=== PATIENT | female | born 1975 | race Caucasian/White ===

== ENCOUNTER 2016-11-16 01:13 | Inpatient (IN) | payer OTHER ==
[2016-11-16] MEDS ORDERED: OLIVE OIL 118 ML BTL MISC PRN (01:42)
[2016-11-16] MEDS ORDERED: OXYTOCIN/RINGERS LACTATE 1,000 ML IV PRN (01:42)
[2016-11-16] MEDS ORDERED: EPSOM SALT 454 GM TP PRN (01:42)
[2016-11-16] MEDS ORDERED: LR 1,000 ML IV PRN (01:42)
[2016-11-16] MEDS ORDERED: AMPICILLIN SODIUM 2 GM in NS 100 ML IV ONE (01:42)
[2016-11-16] MEDS ORDERED: TERBUTALINE SULFATE 1 MG/ML VIAL IV PRN (01:42)
[2016-11-16] MEDS ORDERED: OLIVE OIL 118 ML BTL ONE (01:53)
[2016-11-16] MEDS ORDERED: TERBUTALINE SULFATE 1 MG/ML VIAL ONE (01:53)
[2016-11-16] MEDS ORDERED: AMMONIA AROMATIC 1 EACH AMP IH ONE (01:53)
[2016-11-16] MEDS ORDERED: LIDOCAINE 1% 300 MG/30 ML SDV ONE (01:53)
[2016-11-16] MEDS ORDERED: OXYTOCIN 10 UNIT/ML VIAL ONE (01:54)
[2016-11-16] MEDS ORDERED: MISOPROSTOL 200 MCG TAB ONE (01:54)
[2016-11-16] MEDS ORDERED: fentaNYL 2MCG/ML/BUP 0.1% RTU 100 ML BAG EP ONE (02:22)
[2016-11-16] MEDS ORDERED: PHENYLEPHRINE HCL 100 MCG/ML SYR ONE (02:23)
[2016-11-16 02:24] LABS: % IMMATURE GRANULYOCYTES 0.5 % (0.0-1.1); ABSOLUTE IMMATURE GRANULOCYTES 0.05 10^3/uL (0.00-0.10); ADD DIFF? NO; ADD MORPH? NO; ADD SCAN? NO; ATYPICAL LYMPHOCYTE FLAG 20 (0-99); FRAGMENT RBC FLAG 0 (0-99); HEMATOCRIT 38.4 % (38.0-47.0); HEMOGLOBIN 13.5 g/dL (12.6-16.3); LEFT SHIFT FLG 0 (0-99); LIPEMIA HEMOLYSIS FLAG 90 (0-99); MEAN CELL HEMOGLOBIN CONCENTR. 35.2 g/dL (32.4-36.7); MEAN CELL VOLUME 102.4 fL (81.5-99.8); MEAN PLATELET VOLUME 13.5 fL (8.7-11.7); PLATELET CLUMPS FLAG 10 (0-99); PLATELET COUNT 130 10^3/uL (150-400); RED BLOOD CELL COUNT 3.75 10^6/uL (4.18-5.33); RED CELL DISTRIBUTION WIDTH 12.6 % (11.5-15.2)
[2016-11-16] MEDS ORDERED: PHENYLEPHRINE HCL 100 MCG/ML SYR IVP PRN (02:51)
--- NOTE | 2016-11-16 02:51 | PREANESOB ---
Obstetric Pre-Anesthesia Info - General Info Proposed Procedure: SARA : 2 Para: 1 - Info Status: Full Term Monitors: External FHR Pattern: Reassuring - Labor Status PIH: No Magnesium Sulfate in Use: No Indications for Labor Analgesia: Pain Control Labor Epidural: Proposed Anesthesia ROS: Graves disease. No current RX. Taking only PNV and Zoloft. Allergies/Adverse Reactions: Allergy/AdvReac Type Severity Reaction Status Date / Time No Known Allergies Allergy Unverified 05/02/09 20:12 Home Medications: Medication Instructions Recorded 1 tab PO DAILY 11/16/16 Zoloft 50mg (*) 1 tab PO DAILY 11/16/16 Visit Medications: Generic Name Dose Route Start Last Admin Trade Name Freq PRN Reason Stop Dose Admin Ampicillin Sodium 1 gm/ Sodium 100 mls @ 200 mls/hr 11/16/16 05:43 Chloride IV 12/16/16 05:42 Q4H VANESA Protocol Lactated Ringer's 1,000 mls @ 0 mls/hr 11/16/16 01:42 11/16/16 01:30 Lr IV 05/15/17 01:41 1,000 mls PRN PRN Administration SEE PROTOCOL CONDITIONS Protocol Per Protocol Oxytocin/Lactated Ringer's 1,000 mls @ 150 mls/hr 11/16/16 01:42 Pitocin 20 Units/Lr (Premix) IV PRN PRN Post- bleeding Ibuprofen 600 mg 11/16/16 01:42 Motrin PO 05/15/17 01:41 Q6HRS PRN post , inflammation Magnesium Sulfate 454 gm 11/16/16 01:42 Epsom Salt TP 05/15/17 01:41 PRN PRN perineal discomfort Satartia Oil 118 ml 11/16/16 01:42 Sweet Oil MISC 05/15/17 01:41 ONCE PRN preneal massage Terbutaline Sulfate 0.25 mg 11/16/16 01:42 Brethine IV 05/15/17 01:41 ONCE PRN Tachysystole Discontinued Medications Generic Name Dose Route Start Last Admin Trade Name Freq PRN Reason Stop Dose Admin Ammonia (Aromatic Spirit) Confirm 11/16/16 01:53 Ammonia Aromatic Administered 11/16/16 01:54 Dose 1 each IH .STK-MED ONE Ephedrine Sulfate Confirm 11/16/16 01:53 Ephedrine Sulfate Administered 11/16/16 01:54 Dose 50 mg .ROUTE .STK-MED ONE Fentanyl/Bupivacaine HCl Confirm 11/16/16 02:22 Fentanyl/Bupivacaine/Ns 2 Mcg/Ml 0.1% (Premix Administered 11/16/16 02:23 Dose 100 ml EP .STK-MED ONE Ampicillin Sodium 2 gm/ Sodium 110 mls @ 220 mls/hr 11/16/16 01:42 11/16/16 01:57 Chloride IV 11/16/16 02:11 110 mls ONCE ONE Administration Protocol Lidocaine HCl Confirm 11/16/16 01:53 Lidocaine Hcl 1% Administered 11/16/16 01:54 Dose 300 mg .ROUTE .STK-MED ONE Misoprostol Confirm 11/16/16 01:54 Cytotec Administered 11/16/16 01:55 Dose 800 mcg .ROUTE .STK-MED ONE Satartia Oil Confirm 11/16/16 01:53 Sweet Oil Administered 11/16/16 01:54 Dose 118 ml .ROUTE .STK-MED ONE Oxytocin Confirm 11/16/16 01:54 Pitocin Administered 11/16/16 01:55 Dose 40 unit .ROUTE .STK-MED ONE Phenylephrine HCl Confirm 11/16/16 02:23 Neosynephrine Administered 11/16/16 02:24 Dose 1,000 mcg .ROUTE .STK-MED ONE Terbutaline Sulfate Confirm 11/16/16 01:53 Brethine Administered 11/16/16 01:54 Dose 1 mg .ROUTE .STK-MED ONE - Focused Exam Height/Weight (Nursing): Height 170.18 cm Weight 75.296 kg ASA Status: II Labs: 11/16/16 01:30 - Plan Consent Signed and on Chart: Yes Patient/Guardian Understands and Agrees to Plan: Yes
[2016-11-16] MEDS ORDERED: fentaNYL 2MCG/ML/BUP 0.1% RTU 100 ML EP SCH (03:00)
[2016-11-16] MEDS ORDERED: LR 500 ML IV SCH (03:00)
--- NOTE | 2016-11-16 03:00 | POSTANESTH ---
Post Anesthetic Evaluation Cardiovascular Status: Normal, Stable, Similar to Pre-Op Cond Respiratory Status: Normal, Stable, Similar to Pre-op Cond. Level of Consciousness/Mental Status: Can Participate in Eval, Alert and Oriented Pain Control: Adequate, Prn Tx Ordered Nausea/Vomiting Control: Adequate, Prn Tx Ordered Complications Possibly Related to Anesthesia: None Noted (Excellent analgesia.)
--- NOTE | 2016-11-16 03:52 | OBPROG ---
OBG Labor Progress Note Assessment/Plan: Assessment:cat 2 fhr pain well managed by epidural exam /- cephalic contrctions q 3-4 clear fluid occasional prolonged variables Plan:expectant management of labor 11/16/16 03:50 Subjective: Feeling better after the epidural. Denies pain Objective: 11/16/16 01:30 Patient ABO/Rh B POSITIVE 11/16/16 01:30 - SVE Dilation (cm): 7 Effacement (%): 90 Station: -1 - Physical Exam General Appearance: WD/WN, alert, no apparent distress Neck: non-tender, full range of motion Respiratory: chest non-tender, lungs clear, normal breath sounds Cardiac/Chest: regular rate, rhythm Abdomen: normal bowel sounds Extremities: normal range of motion, Aishwarya's sign (negative bilaterally) DTR- Lower Extremities: Knee (R): 1+, Knee (L): 1+ (no clonus) Skin: normal color, warm/dry Neuro/Psych: no motor/sensory deficits, alert, normal mood/affect, oriented x 3 Oxytocin Orders Assessment - Pre-Induction/Augmentation Assessment Gestational Age: 38 week(s) and 4 day(s) ICD10 Worksheet Patient Problems: Problems Problem Status Onset Asthma Active Subclinical hyperthyroidism Active Vaginal delivery Active
--- NOTE | 2016-11-16 05:10 | GHP ---
[f rep st] HISTORY AND PHYSICAL DATE OF ADMISSION: 11/16/2016 Lupe is a 41-year-old, 2, para 1, with an EDC of 11/26/2016, which gives her a gestational age of 38 and 4/7 weeks. States bag of water had broken at 0040 on 11/16/2016. States labor began at 4 p.m. on 11/15/2016. The patient has been receiving routine care with [facility] since 04/29/2016 at 9 weeks and 1 day. She states feeling positive movement. PAST MEDICAL HISTORY: The patient has a history of depression. No prescriptions since 2001. 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 History of thyroid dysfunction, Graves disease. PAST SURGICAL HISTORY: [place] teeth extraction. Previous Dand C for retained placenta fragments. History of histeroscopys HISTORY OF : Clomid was given with her first . Manual extraction of the placenta. D and C by 4 weeks for retained placenta. : Velamentous insertion of the cord. AMA GYNECOLOGICAL HISTORY: History of infertility, positive HPV. Negative colpo in 2006. Long history of amenorrhea. Other surgical history, past D and C after 1st as well as hysteroscopies, past yeast infections in high school. LABS: Patient is B positive, antibody negative. RPR is nonreactive. Rubella is immune. Hepatitis is negative. HIV is negative. Parvovirus immune. TSH on 05/04/2016 was 0.109. Early ultrasound at 9 and 1/7 weeks through [facility]. AFP was negative. 1 hour GTT was negative. GBS is positive. PHYSICAL ASSESSMENT: The patient is awake, alert, oriented x3. LUNGS: Clear bilaterally. Bowel sounds are positive in all 4 quadrants. DTRs 1+ bilaterally. Homans sign is negative bilaterally. On exam palpation of the uterus, contractions are every 2-3 minutes with relaxation in between. PLAN OF CARE: 1. GBS positive. Antibiotics ampicillin in particular. 2. Epidural for pain relief at patient request. 3. Expectant management of labor. /[id number]/MODL MTDD
[2016-11-16] MEDS ORDERED: SIMETHICONE 80 MG TAB CHEW PO PRN (05:21)
[2016-11-16] MEDS ORDERED: HYDROCODONE/APAP 5/325 TAB PO PRN (05:21)
[2016-11-16] MEDS ORDERED: ACETAMINOPHEN 325 MG TAB PO PRN (05:21)
[2016-11-16] MEDS ORDERED: HYDROCORTISONE 0.5% CREAM TP PRN (05:21)
--- NOTE | 2016-11-16 05:21 | OBDEL ---
Info Type: Vaginal GBS+: Yes Antibiotic Used for + GBS: Ampicillin Number of Antibiotic Doses Given: 1 Indications for Delivery: Spontaneous Labor, SROM (AMA) Vaginal Delivery - Labor and Delivery Onset of Contractions Date: 11/15/16 Onset of Contractions Time: 16:00 Rupture of Membranes Date: 11/16/16 Rupture of Membranes Time: 00:40 Rupture of Membranes Type: Spontaneous Amniotic Fluid Color: Clear Dilation Complete Date: 11/16/16 Dilation Complete Time: 04:40 Placenta Delivery Date: 11/16/16 Placenta Delivery Time: 05:05 Total Hours of Labor: 13 Vaginal Sponge Count Correct: Yes Vaginal Needle Count Correct: Yes Vaginal Sweep Performed: No EBL: 350 Delivery Events: None Data Queen Delivery Date: 11/16/16 Delivery Time: 04:54 CARLOS: 11/26/16 Gestational Age: 38 week(s) and 4 day(s) Sex of : Male Score (1 Min): 8 Score (5 Min): 9 ICD10 Worksheet Patient Problems: Problems Problem Status Onset Asthma Active Subclinical hyperthyroidism Active Vaginal delivery Active
[2016-11-16] MEDS ORDERED: AMPICILLIN SODIUM 1 GM in NS 100 ML IV SCH (05:43)
[2016-11-16] MEDS: IBUPROFEN 600 MG TAB PO PRN ×3 (07:00→20:46)
[2016-11-16 08:58] VITALS: RESP 16
--- NOTE | 2016-11-16 12:16 | OBPP ---
Progress Note Assessment/Plan: Assessment: s/p PPD # 1 - pt is stable Plan: Continue routine pp care Encourage ambulation Plan for d/c home in am 11/1711/16/16 12:14 Subjective: Pt seen and examined. Doing well, with no complaints. Some cramping while nursing. Relief with Motrin. Moderate lochia. Voiding without difficulty, passing flatus. BF is going well so far. Objective: 11/16/16 01:30 Patient ABO/Rh B POSITIVE 11/16/16 01:30 Temp Pulse Resp BP Pulse Ox 36.7 C 66 16 111/68 96 11/16/16 11:19 11/16/16 11:19 11/16/16 11:19 11/16/16 11:19 11/16/16 08:54 Uterine Position/Fundal Height: Umbilicus -2 Uterine Tone: Firm Physical Exam - Physical Exam General Appearance: WD/WN, alert, no apparent distress Respiratory: lungs clear, normal breath sounds Cardiac/Chest: regular rate, rhythm Abdomen: normal bowel sounds, non-tender, soft, flatus (+) Extremities: non-tender, normal inspection Skin: normal color, warm/dry Neuro/Psych: alert, normal mood/affect, oriented x 3
[2016-11-16] MEDS ORDERED: ZOLOFT 50 MG PO SCH (12:30)
[2016-11-16] MEDS: SERTRALINE HCL 50 MG TAB PO SCH (17:24)
[2016-11-16 20:29] VITALS: O2SAT 98
[2016-11-16] MEDS: DOCUSATE SODIUM 100 MG CAP PO PRN (20:46)
[2016-11-17] MEDS: IBUPROFEN 600 MG TAB PO PRN ×2 (02:10→11:04)
--- NOTE | 2016-11-17 07:41 | OBPP ---
Progress Note Assessment/Plan: Assessment: well pain well managed scant rubra lochia ff@u voiding without difficulty anemic Plan:pp day 1 expectant management/ iron 11/16/16 03:50 11/17/16 07:38 11/17/16 07:40 Subjective: Doing well. Denies difficulties. Pain well managed. Needing narcotics at times for cramping. going well Objective: 11/17/16 05:35 Patient ABO/Rh B POSITIVE 11/16/16 01:30 Temp Pulse Resp BP Pulse Ox 37.3 C 77 16 108/69 98 11/16/16 20:28 11/16/16 20:28 11/16/16 20:28 11/16/16 20:28 11/16/16 20:28 Uterine Position/Fundal Height: At Umbilicus Uterine Tone: Firm Physical Exam - Physical Exam General Appearance: WD/WN, alert, no apparent distress Abdomen: No other (ff@u/ scant rubra lochia) Extremities: normal range of motion, Aishwarya's sign (negative bilaterally) DTR- Lower Extremities: Knee (R): 1+, Knee (L): 1+ (no clonus bilaterally) Skin: normal color, warm/dry Neuro/Psych: no motor/sensory deficits, alert, normal mood/affect, oriented x 3
[2016-11-17] MEDS ORDERED: IRON POLYSAC/IRON HEME 28 MG TAB PO SCH (09:00)
[2016-11-17] MEDS: SERTRALINE HCL 50 MG TAB PO SCH (11:04)
[2016-11-17] MEDS: DOCUSATE SODIUM 100 MG CAP PO PRN (11:08)
[2016-11-17 11:09] VITALS: BP 104/76; PULSE 65; TEMP 98
--- NOTE | 2016-11-17 13:10 | OBGCSDC ---
General Delivery Information - General Info : 2 Para: 2 Delivery Physician/CNM: Shey Hagen Labs: Patient ABO/Rh B POSITIVE 11/16/16 01:30 Hct 29.7 % (38.0-47.0) L D 11/17/16 05:35 Vaginal - Diagnosis Labor: Spontaneous Rupture of Membranes Type: Spontaneous Amniotic Fluid Color: Clear Delivery Events: None - Operations/Procedures L&D Analgesia/Anesthesia Type: Epidural, Local - Hospital Course Antepartum: Dis well thoughout . AMA Intrapartum: SROM, Sontaneous labor. Intact perineum no repiar. Epidural for pain relief : GBS + inadequetely treated. PAin well managed. well. Home pp day 1 ok with pediatricians - Delivery L&D Analgesia/Anesthesia Type: Epidural, Local Data Queen Delivery Date: 11/16/16 Delivery Time: 04:54 CARLOS: 11/26/16 Gestational Age: 38 week(s) and 5 day(s) Sex of : Male [place] Weight (gm): 3496 g Score (1 Min): 8 Score (5 Min): 9 Discharge Information - Discharge Information Condition: Good
== END 2016-11-17 17:15 | disposition home or self-care (01) | DRG 775 ==
LOC: FLD 01:13 → FOB 11:30
PROVIDERS: ADMIT Advanced Practice Midwife; ATTEND Obstetrics & Gynecology
PROC: 10E0XZZ Delivery of Products of Conception, External Approach (ICD-10-PCS; principal; 2016-11-16)
DX: O90.81 Anemia of the puerperium (principal); O99.820 Streptococcus B carrier state complicating pregnancy; O99.280 Endocrine, nutritional and metabolic diseases complicating pregnancy, unspecified trimester; E05.00 Thyrotoxicosis with diffuse goiter without thyrotoxic crisis or storm; Z3A.38 38 weeks gestation of pregnancy; Z37.0 Single live birth
CPT/HCPCS: J0290; J2370; J2590; J3105

== ENCOUNTER → 2017-05-21 | Outpatient (CLI) | payer OTHER | LOC: FIMAGING 08:07 | PROVIDERS: ATTEND Family Medicine | DX: Z12.31 Encounter for screening mammogram for malignant neoplasm of breast (principal) | CPT/HCPCS: G0202 ==